=== PATIENT | female | born 1945 | race Caucasian/White ===

== ENCOUNTER 2016-08-19 06:06 | Day surgery (SDC) | payer MEDICARE, BC ==
--- NOTE | ~2016-08-19 | EGD ---
EGD REPORT [address] [address] NAME: CHAITANYA DOUGLAS : [birth year] STATUS : REG [facility] PAT#: [id number] AGE: 71 ADM/REG DATE : 08/19/16 MR#: [id number] REPORT SERV DATE: 08/19/16 DICTATED BY: SABRINA RENDON DATE: 08/19/16 REPORT STATUS : Draft TRANSCRIBED BY: [facility] DATE: 08/19/16 Endoscopy Center Patient Name: Chaitanya Douglas Date of : 1945 Attending MD: SABRINA RENDON MD Procedure Date No Time: 08/19/2016 Procedure: Colonoscopy Indications: Personal history of colonic polyps Referring MD: MILY TELLEZ MD, NEGRITA CARDENAS MD, MILY CHARLTON Medicines: Propofol per Anesthesia Complications: No immediate complications. Estimated blood loss: None. Procedure: Pre-Anesthesia Assessment: - After reviewing the risks and benefits, the patient was deemed in satisfactory condition to undergo the procedure. - Prior to the procedure, a History and Physical was performed, and patient medications and allergies were reviewed. The patient's tolerance of previous anesthesia was also reviewed. The risks and benefits of the procedure and the sedation options and risks were discussed with the patient. All questions were answered, and informed consent was obtained. Prior Anticoagulants: The patient has taken Eliquis, last dose was 3 days prior to procedure. ASA Grade Assessment: III - A patient with severe systemic disease. After reviewing the risks and benefits, the patient was deemed in satisfactory condition to undergo the procedure. After I obtained informed consent, the scope was passed under direct vision. Throughout the procedure, the patient's blood pressure, pulse, and oxygen saturations were monitored continuously. The CF [id number] was introduced through the anus and advanced to the terminal ileum, with identification of the appendiceal orifice and IC valve. The colonoscopy was performed with moderate difficulty due to a tortuous colon and the patient's body habitus. Successful completion of the procedure was aided by straightening and shortening the scope to obtain bowel loop reduction. The ileocecal valve, appendiceal orifice and terminal ileum were photographed. The patient tolerated the procedure well. The quality of the bowel preparation was good. The bowel preparation used was SUPREP. Scope withdrawal time was greater than 6 minutes. EGD REPORT [place] [id number] [facility] [place]. [address] NAME: CHAITANYA DOUGLAS : [birth year] STATUS : REG [facility]#: [id number] AGE: 71 ADM/REG DATE : 08/19/16 MR#: [id number] REPORT SERV DATE: 08/19/16 DICTATED BY: SABRINA RENDON DATE: 08/19/16 REPORT STATUS : Draft TRANSCRIBED BY: [employer] DATE: 08/19/16 Findings: The perianal and digital rectal examinations were normal. Pertinent negatives include normal sphincter tone. The terminal ileum appeared normal. Non-bleeding internal hemorrhoids were found during retroflexion and were small and Grade I (internal hemorrhoids that do not prolapse). Retroflexion in the cecum provided alternate views of the ascending colon. A few small-mouthed diverticula were found in the sigmoid colon. The exam was otherwise without abnormality. Impression: - The examined portion of the ileum was normal. - Non-bleeding internal hemorrhoids. - Mild diverticulosis in the sigmoid colon. - The examination was otherwise normal. Recommendation: - Discharge patient to home (ambulatory). - High fiber diet indefinitely. - Continue present medications. - Resume Eliquis at prior dose today. - Repeat colonoscopy in 5 years for surveillance. - Return to GI clinic PRN. - Patient has a contact number available for emergencies. The signs and symptoms of potential delayed complications were discussed with the patient. Return to normal activities tomorrow. Written discharge instructions were provided to the patient. Procedure Code(s): --- Professional --- 77729, Colonoscopy, flexible, proximal to splenic flexure; diagnostic, with or without collection of specimen(s) by brushing or washing, with or without colon decompression (separate procedure) Diagnosis Code(s): --- Professional --- K64.0, First degree hemorrhoids K57.30, Diverticulosis of large intestine without perforation or abscess without bleeding Z86.010, Personal history of colonic polyps CPT copyright 2013 [employer]. All rights reserved. The codes documented in this report are preliminary and upon elementary school principal review may be revised to meet current compliance requirements. EGD REPORT [address] [address] NAME: CHAITANYA DOUGLAS : [birth year] STATUS : REG [facility]#: [id number] AGE: 71 ADM/REG DATE : 08/19/16 MR#: [id number] REPORT SERV DATE: 08/19/16 DICTATED BY: SABRINA RENDON DATE: 08/19/16 REPORT STATUS : Draft TRANSCRIBED BY: [employer] DATE: 08/19/16 SABRINA RENDON MD 08/19/2016 8:02 AM This report has been signed electronically. Number of Addenda: 0 Note Initiated On: 08/19/2016 7:14 AM Scope Withdrawal Time 0 hours 7 minutes 40 seconds [address] [id number]
[~2016-08-19 06:06] MED LIST: ADVAIR115P INH; ADVAIR230P INH; ALLERGY SHOT IM/SC; AMOXIL500 MG PO; AVAP150 PO; BETAPACE80 PO; CARDCD120 PO; DILT-XR240 MG PO; ELIQUIS 5 MG TAB5 MG PO; FLECAINIDE50 MG PO; FLONASE NAS; JANTOVEN2.5 MG PO; JANTOVEN5 MG; JANTOVEN5 MG PO; LOP25 PO; LOTEMAX OPH SUSP5 ML OPH; METHOC500B PO; METHOC750B PO; MULTI-VIT HP OR; NAP500 PO; OS500+D PO; P5 PO; PRILO PO; PROAIR HFA INH; SINGULAIR1 PO; SPIRO25 PO; SYSTANE OP; [UNRECOGNIZED DRUG - MIXTURE] PO; tumeric PO
== END 2016-08-19 23:59 | disposition home or self-care (01) ==
LOC: DMU 06:06
PROVIDERS: Internal Medicine Gastroenterology
PROC: 0DJD8ZZ Inspection of Lower Intestinal Tract, Via Natural or Artificial Opening Endoscopic (ICD-10-PCS; principal; 2016-08-19 07:30)
DX: K64.0 First degree hemorrhoids (principal); K57.30 Diverticulosis of large intestine without perforation or abscess without bleeding; Z86.010 Personal history of colon polyps; Z88.6 Allergy status to analgesic agent; Z88.8 Allergy status to other drugs, medicaments and biological substances; J45.909 Unspecified asthma, uncomplicated; Z99.81 Dependence on supplemental oxygen; I10 Essential (primary) hypertension; I48.0 Paroxysmal atrial fibrillation; Z79.01 Long term (current) use of anticoagulants; I34.1 Nonrheumatic mitral (valve) prolapse; Z85.820 Personal history of malignant melanoma of skin; Z90.49 Acquired absence of other specified parts of digestive tract; M19.90 Unspecified osteoarthritis, unspecified site; Z98.41 Cataract extraction status, right eye; Z98.42 Cataract extraction status, left eye; Z96.1 Presence of intraocular lens; Z79.899 Other long term (current) drug therapy; Z79.51 Long term (current) use of inhaled steroids